=== PATIENT | male | born 1940 | race Caucasian/White ===

== ENCOUNTER → 2019-02-03 | Outpatient (CLI) | payer OTHER, MEDICARE ==
[~2019-02-03] VITALS: Ht 172.7 cm; Wt 69.3 kg
[~2019-02-03] MED LIST: ASPIRIN325 PO; COUMADIN 4 MG TA4 M1 PO; DIGOXIN125 MCG PO; FOLIC ACID1 MG PO; LASIX 20 MG TAB20 MG PO; METHOCARBAMOL500 M2 PO; METOPROLOL SUCC50 MG PO; MIRALAX17 GM PO; NEURONTIN 300300 M1 PO; NORCO 5-325 TA1 EACH PO; POTASSIUM20 PO; PRADAXA150 MG PO; PROTONIX40 M1 PO; VITAMIN D2000 UNIT PO
[2019-02-03 13:45] VITALS: BP 104/70
--- NOTE | 2019-02-03 14:28 | NUR ---
Pain Clinic Assessment: 1. History of Osteoarthritis: right hip right shoulder History of Rheumatoid Arthritis: Not Applicable 2. Height: 5 ft. 8 in. 172.7 cm. Weight: 152.8 lb. oz. 69.310 kg. Patient's BMI: 23.2 3. Vital Signs: BP: 104/70 Pulse: 85 Resp: 14 Temp: 02 Sat: 98 ECG Mon: 4. Pain Intensity: 6 5. Fall Risk: Dizziness: N Needs help standing or walking: Y Fallen in the last 3 months: Y Fall risk comments: 6. Patient on Blood Thinner: Dabigatran Etex (Pradaxa) 7. History of Hypertension: Y 8. Opioid Therapy greater than 6 weeks: N Opiate Contract Signed: 9. Risk Assessment Tool Provided: low-1 10. Functional Assessment Tool: 11. Recreational Drug Use: Never Drug Type: Tobacco Use: Former Smoker Tobacco Type: Amount or Packs/day: How Many Years: Alcohol Use: No Frequency: Quant:
--- NOTE | 2019-02-07 18:13 | HPC ---
[facility] [place] [address] PAIN MANAGEMENT CONSULTATION Name: ANNA JONES Room #: REG DEANNE Karin.#: [id number] Admission: 02/03/19 ������������������ Attend Phys: Eliel Browne MD Discharge: ������������������ Date of : 38 Report #: [id number] THIS REPORT FOR: //name// CC: [facility] Eliel Browne DATE OF SERVICE: 02/03/2019 CHIEF COMPLAINT: Severe pain and swelling, right lower extremity following severe compression fracture of T12. I am seeing the patient today at the request of Dr. Brandee Carrillo. He and I discussed his case over the phone. He has ongoing pain that is mostly in his foot, but also involves the calf. There is swelling in the foot as well and some increase in blood flow. He does not have allodynia at this time, but there do appear to be sympathetic changes throughout the foot. There was no injury noted to the foot. His pain began after he sustained a T12 fracture on 10/27/2018. He may have had some prior foot pain related to gout. He has been extensively evaluated by his physicians, Dr. Carrillo and Dr. Selby, and an MRI was taken of his left foot. This shows soft tissue edema. There may be mild bone edema also in the fifth metatarsal, but this is not felt to be concordinate with his ongoing pain, which is mostly across the dorsum of the foot. He reports that his pain on a daily basis is 6/10, he has been taking 2 hydrocodone in the evening and an additional 2 at bedtime and then sleeping well. In addition to the hydrocodone that he takes a total of 20 mg over about 4-6 hour period, he has been using gabapentin 300 mg t.i.d. and bedtime dose of methocarbamol 500 mg. He has clearly been heavily sedated in the evening and nighttime. There has been some recommendation that he not use his opioids during the day. MEDICATIONS: Pantoprazole, Pradaxa 150 mg daily, digoxin 125 mcg daily, metoprolol 50 mg daily, Lasix 20 mg, potassium, gabapentin 600 mg t.i.d. and increase of the dose mentioned above. Aspirin 81 mg, vitamin D3, folic acid, methocarbamol 500 mg at bedtime, [place] 5/325 two tablets taken in the evening and at bedtime. ALLERGIES: None. PAST MEDICAL HISTORY: Positive for atrial fibrillation, for which he takes Pradaxa. Mitral regurgitation, hypertension. Recent compression fracture, traumatic, T12. FAMILY HISTORY: Father of coronary artery disease. [facility] [address] [place] [address] PAIN MANAGEMENT CONSULTATION Name: ANNA JONES Room #: REG [facility].#: [id number] Admission: 02/03/19 ������������������ Attend Phys: Eliel Browne MD Discharge: ������������������ Date of : 38 Report #: [id number] SOCIAL HISTORY: Denies use of alcohol. Former tobacco user, quitting in 1969. PHYSICAL EXAMINATION: GENERAL: Pleasant gentleman, wearing MUSTAFA brace. VITAL SIGNS: Blood pressure 104/70, heart rate 85, respirations 14. He is 5 feet 8 inches, 152 pounds. His BMI is 23.2. CHEST: Clear. CARDIAC: Rhythm is irregular. ABDOMEN: Soft. MUSCULOSKELETAL: Spine reveals local tenderness across the thoracolumbar region. He has limited range of motion due to the MUSTAFA brace and due to pain. Examination of the extremities reveals normal muscle mass in the thigh and calf. There is no asymmetry. There is no noted allodynia. Deep tendon reflexes are absent at knees and ankles. Examination of the affected right foot reveals mild edema, perhaps a bit more laterally than medially. There is tenderness around the dorsum of the foot. There are no open wounds. Pulses are palpable. There is no allodynia. IMPRESSION: Ongoing right foot pain and now some pain extending up into the calf by report. This occurred following a T12 compression fracture. I do believe that this is radicular but it does seem to have some sympathetically mediation and may be a variant of complex regional pain syndrome type 2. I have suggested sympathetic nerve blocks which should be performed with his anticoagulation on hold for 5 days. This would have some diagnostic and hopefully therapeutic benefits as well. I have recommended that he continue to take his hydrocodone 4 tablets a day, but rather than just taking it all in the evening and at nighttime, I think he would do better if he space it out taking one tablet 4 times daily, so that he has daytime relief. This may be of some benefit. It might benefit from some topical agents, although we did not initiate that today. We will try this sympathetic nerve block first. This will tell us to some degree with how much of his pain is sympathetically mediated. Multiple questions were asked and answered with the patient and his and daughter. Followup visit scheduled for his injection sometime in the next week once we have him off his Pradaxa for 5 days. ��������������������������������������������� <ELECTRONICALLY SIGNED> ���������������������������������������� By: Eliel Browne MD ��������������������������������������������� 02/07/19 1813 180 1347 Eliel Browne MD /nt
== END ==
LOC: PAIN 06:50
DX: S22.089D Unspecified fracture of T11-T12 vertebra, subsequent encounter for fracture with routine healing (principal); I48.91 Unspecified atrial fibrillation; I10 Essential (primary) hypertension; Z79.82 Long term (current) use of aspirin; Z79.899 Other long term (current) drug therapy; Z79.891 Long term (current) use of opiate analgesic; X58.XXXD Exposure to other specified factors, subsequent encounter

== ENCOUNTER → 2019-02-10 | Outpatient (CLI) | payer OTHER, MEDICARE ==
[~2019-02-10] VITALS: Ht 172.7 cm; Wt 78.0 kg
[~2019-02-10] MED LIST changes: +BUTRANS1 EAC1 TRANSDERM
[2019-02-10 08:32] VITALS: BP 113/70
--- NOTE | 2019-02-10 08:40 | NUR ---
Pain Clinic Assessment: 1. History of Osteoarthritis: right hip right shoulder History of Rheumatoid Arthritis: Not Applicable 2. Height: 5 ft. 8 in. 172.7 cm. Weight: 172.0 lb. oz. 78.019 kg. Patient's BMI: 26.2 3. Vital Signs: BP: 113/70 Pulse: 83 Resp: 14 Temp: 02 Sat: 97 ECG Mon: 4. Pain Intensity: 5 5. Fall Risk: Dizziness: N Needs help standing or walking: Y Fallen in the last 3 months: N Fall risk comments: 6. Patient on Blood Thinner: Dabigatran Etex (Pradaxa) 7. History of Hypertension: Y 8. Opioid Therapy greater than 6 weeks: N Opiate Contract Signed: 9. Risk Assessment Tool Provided: low-1 10. Functional Assessment Tool: 11. Recreational Drug Use: Never Drug Type: Tobacco Use: Former Smoker Tobacco Type: Amount or Packs/day: How Many Years: Alcohol Use: No Frequency: Quant:
--- NOTE | 2019-03-08 17:25 | HPC ---
[facility] [place] [address] PAIN MANAGEMENT CONSULTATION Name: ANNA JONES Room #: REG DEANNE Wade.#: [id number] Admission: 02/10/19 ������������������ Attend Phys: Eliel Browne MD Discharge: ������������������ Date of : 38 Report #: [id number] THIS REPORT FOR: //name// CC: Link Browne INCOMPLETE DICTATION Followup sympathetic nerve block. The patient returns to the pain clinic today for a lumbar epidural sympathetic nerve block. He has discontinued his Pradaxa for 5 days. He continues to complain of pain at a level of 5/10. PHYSICAL EXAMINATION: VITAL SIGNS: Five foot 8, 172 pounds. Blood pressure 113/70, heart rate 83 and respirations of 14. MUSCULOSKELETAL: Significant tenderness is located across the thoracolumbar segment. He is wearing his MUSTAFA brace. IMPRESSION: Right foot pain with sympathetic features, complex regional pain syndrome type 2. PROCEDURE: Epidural sympathetic nerve block, L2-L3, under fluoroscopic guidance. DESCRIPTION OF PROCEDURE: He was taken to the fluoroscopic suite, placed prone, skin prepped with ChloraPrep. Skin anesthetized over the L2-L3 interspace. A 20-gauge Tuohy epidural needle advanced in the epidural space with loss of resistance. There was no blood or CSF aspirated. A 1 mL of . DICTATION ENDS HERE. ��������������������������������������������� <ELECTRONICALLY SIGNED> ���������������������������������������� By: Eliel Browne MD ��������������������������������������������� 03/08/19 1725 1851 1345 Eliel Browne MD /bridger
--- NOTE | 2019-03-08 17:25 | HPC ---
[facility] [place] [address] PAIN MANAGEMENT CONSULTATION Name: ANNA JONES Room #: REG DEANNE [facility].#: [id number] Admission: 02/10/19 ������������������ Attend Phys: Eliel Browne MD Discharge: ������������������ Date of : 38 Report #: [id number] THIS REPORT FOR: //name// CC: Kelvin Browne DATE OF SERVICE: 02/10/2019 Followup visit for persistent right lower extremity pain following compression fracture of T12. The patient is here today for a lumbar epidural sympathetic nerve block. He has significant persistent pain as outlined in his consultation from 02/03/2019. There have been no significant changes over the course of the last 7 days. At that visit, multiple questions were asked and answered. The patient, his and daughter were present for that visit. We elected to proceed with a lumbar sympathetic nerve block. I considered performing simple diagnostic injection, which may have some therapeutic benefit. I have elected to proceed today with a lumbar epidural sympathetic nerve block using bupivacaine, which will also provide some somatic block as well. I believe that this will provide more significant therapeutic and lasting benefit for the patient. He has also been on a blood thinner, Pradaxa, which has been discontinued for the appropriate days. PHYSICAL EXAMINATION: Today, his blood pressure is 113/70, heart rate is 83. He is pleasant, alert and oriented. He is wearing a cast brace. He walks with a walker. He scores his pain intensity as a 6-8/10. Presentation is similar with tenderness across the dorsum of the foot without open wounds. Pulses palpable. No allodynia. IMPRESSION: Ongoing right foot pain. Some complex regional pain syndrome features, although he does not have allodynia or swelling at this time. PROCEDURE: Epidural injection lumbar sympathetic, L2-L3 under fluoroscopic guidance. He was taken to fluoroscopic suite, placed prone, skin prepped with ChloraPrep. Skin anesthetized over the L2-L3 interspace to the right of midline. A 20-gauge Tuohy epidural needle was advanced in the epidural space with loss of resistance. There was no blood nor CSF aspirated. A 1 mL of Omnipaque was injected. Good spread of dye was seen along the right lateral recess extending cephalad and caudad. It was then followed by 5 mL of 0.25% bupivacaine mixed with 40 mg of triamcinolone. He tolerated the procedure well. He was observed [address] [address] PAIN MANAGEMENT CONSULTATION Name: ANNA JONES PILARBETITO Room #: REG CLI WadeWade#: [id number] Admission: 02/10/19 ������������������ Attend Phys: Eliel Browne MD Discharge: ������������������ Date of : 38 Report #: [id number] in recovery room at the time of this dictation and was in stable condition. A followup visit is planned in 2-4 weeks. ��������������������������������������������� <ELECTRONICALLY SIGNED> ���������������������������������������� By: Eliel Browne MD ��������������������������������������������� 03/08/19 1725 0914 0326 Eliel Browne MD /bridger
== END | disposition home or self-care (01) ==
LOC: PAIN 06:45
DX: G57.71 Causalgia of right lower limb (principal); Z87.891 Personal history of nicotine dependence; Z79.82 Long term (current) use of aspirin; Z88.8 Allergy status to other drugs, medicaments and biological substances; Z79.899 Other long term (current) drug therapy

== ENCOUNTER → 2019-04-04 | Outpatient (CLI) | payer OTHER, MEDICARE ==
[~2019-04-04] VITALS: Ht 167.6 cm; Wt 69.5 kg
[~2019-04-04] MED LIST changes: +BUTRANS1 EAC3 TRANSDERM
--- NOTE | ~2019-04-04 | HPC ---
[facility] [address] [address] PAIN MANAGEMENT CONSULTATION Name: ANNA JONES Room #: REG DEANNE Hylton.#: [id number] Admission: 04/04/19 ������������������ Attend Phys: Eliel Browne MD Discharge: ������������������ Date of : 38 Report #: [id number] THIS REPORT FOR: //name// CC: ALEXANDER Browne DATE OF SERVICE: 04/04/2019 Followup visit for intractable low back pain and left lower extremity pain following compression fracture. The patient returns to pain clinic today and I am pleased to report that he is doing extremely well. We transitioned him at last visit to Butrans patch. Buprenorphine has agreed with him. He has been substantially lower in pain [id number] and has discontinued his use of hydrocodone completely. The most notable benefit, however, has been the ability to sleep through the night. Since he has been sleeping through the night, he is feeling better during the day and his mobility has improved as well. He is grateful for the relief. He denies side effects. He understands that this is an opioid medication, albeit an unusual one with an unusual delivery system. He will safeguard his medications. PQRS REVIEW: 1. Positive for osteoarthritis, right hip and shoulder. 2. BMI is 24. 3. Vital signs: Blood pressure 131/83, heart rate 98, respirations 16, O2 sat 97%. 4. Pain intensity 10/17. 5. He has not fallen in the last 3 months. 6. He remains on Pradaxa. 7. He is treated by Dr. Selby for hypertension. All medications were reviewed and reconciled. We are currently only providing his buprenorphine. 8. He is on a verbal opioid agreement. He did not sign a written agreement. If we continue this chronically after 3 months, we will ask him to do so. 9. He has completed an opioid risk tool and is considered at low risk. 10. Functional assessment score is low suggesting this gentleman is active and does not allow the pain to slow him. 11. He denies use of tobacco and alcohol. PHYSICAL EXAMINATION: GENERAL: He is pleasant, alert and oriented. VITAL SIGNS: As noted above. MUSCULOSKELETAL: He moves independently from sitting to standing position. He has a MUSTAFA brace on. He has mild pain with back extension and some improvement with forward flexion. Tenderness across the mid back. [facility] [address] [place] [address] PAIN MANAGEMENT CONSULTATION Name: ANNA JONES Room #: REG DEANNE Vinny#: [id number] Admission: 04/04/19 ������������������ Attend Phys: Eliel Browne MD Discharge: ������������������ Date of : 38 Report #: [id number] EXTREMITIES: Foot is improved with some continued swelling. This may be unrelated to his fracture at this point. IMPRESSION: Compression fracture. Pain well controlled currently with buprenorphine patch q. 7 days. PLAN: We have discussed increasing the patch slightly to 15 mcg. He has tolerated the first patch very effectively. We will increase the patch today, and I provided him with medication refills for the next 3 months. At the end of that period, I will continue the medication, but may consider tapering if he is doing well. I would like to keep his pain under control during this period of healing. ��������������������������������������������� ���������������������������������������� By: ��������������������������������������������� 0921 0229 Eliel Browne MD /nt
[2019-04-04 08:55] VITALS: BP 131/83
--- NOTE | 2019-04-04 08:59 | NUR ---
Pain Clinic Assessment: 1. History of Osteoarthritis: right hip right shoulder History of Rheumatoid Arthritis: Not Applicable 2. Height: 5 ft. 6 in. 167.6 cm. Weight: 153.2 lb. oz. 69.491 kg. Patient's BMI: 24.7 3. Vital Signs: BP: 131/83 Pulse: 98 Resp: 16 Temp: 02 Sat: 97 ECG Mon: 4. Pain Intensity: 2 5. Fall Risk: Dizziness: N Needs help standing or walking: N Fallen in the last 3 months: N Fall risk comments: 6. Patient on Blood Thinner: Dabigatran Etex (Pradaxa) 7. History of Hypertension: Y 8. Opioid Therapy greater than 6 weeks: N Opiate Contract Signed: 9. Risk Assessment Tool Provided: low-1 10. Functional Assessment Tool: 11. Recreational Drug Use: Never Drug Type: Tobacco Use: Former Smoker Tobacco Type: Amount or Packs/day: How Many Years: Alcohol Use: No Frequency: Quant:
== END ==
LOC: PAIN 06:49
DX: M48.56XA Collapsed vertebra, not elsewhere classified, lumbar region, initial encounter for fracture (principal); M79.605 Pain in left leg

== ENCOUNTER → 2019-07-04 | Outpatient (CLI) | payer OTHER, MEDICARE ==
[~2019-07-04] VITALS: Ht 175.3 cm; Wt 71.8 kg
[~2019-07-04] MED LIST changes: +MELOXICAM15 MG PO; +VOLTAREN GEL 1100 G1 TOP
[2019-07-04 09:01] VITALS: BP 119/68
--- NOTE | 2019-07-04 09:05 | NUR ---
Pain Clinic Assessment: 1. History of Osteoarthritis: right hip right shoulder History of Rheumatoid Arthritis: Not Applicable 2. Height: 5 ft. 9 in. 175.3 cm. Weight: 158.4 lb. oz. 71.850 kg. Patient's BMI: 23.4 3. Vital Signs: BP: 119/68 Pulse: 95 Resp: 16 Temp: 02 Sat: 98 ECG Mon: 4. Pain Intensity: 0 5. Fall Risk: Dizziness: Y Needs help standing or walking: N Fallen in the last 3 months: N Fall risk comments: 6. Patient on Blood Thinner: Dabigatran Etex (Pradaxa) 7. History of Hypertension: Y 8. Opioid Therapy greater than 6 weeks: N Opiate Contract Signed: 9. Risk Assessment Tool Provided: low-1 10. Functional Assessment Tool: 11. Recreational Drug Use: Never Drug Type: Tobacco Use: Former Smoker Tobacco Type: Amount or Packs/day: How Many Years: Alcohol Use: No Frequency: Quant:
--- NOTE | 2019-07-05 15:15 | HPC ---
[facility] [address] [place] [address] PAIN MANAGEMENT CONSULTATION Name: ANNA JONES Room #: REG ELIGIO Concetta.#: [id number] Admission: 07/04/19 Attend Phys: Roz Barakat Discharge: Date of : 38 Report #: [id number] THIS REPORT FOR: //name// CC: Roz Barakat Anoop Selby DATE OF SERVICE: 07/04/2019 CHIEF COMPLAINT: Chronic intractable low back pain and left lower extremity pain. HISTORY OF PRESENT ILLNESS: This is a very pleasant 79-year-old gentleman who returns to the pain clinic today reporting that he has been out of his Butrans patch since last , but currently today he is having no pain. He tells me that his bilateral foot pain, which was the worst pain that he was experiencing has gone. He is unsure if he is still needing his Butrans patches and he denies any pain for several days. He reports that he has not experienced any withdrawal symptoms since his patch wore off on . He had this appointment scheduled, but somehow was off on the timing of that appointment. He does report that he had started meloxicam from Dr. Carrillo and has found that medication very beneficial in helping his arthritis pain in his knees and elbows and wrists. The patient is here today, unsure if he should restart his medications. ALLERGIES: MORPHINE. CURRENT LIST OF MEDICATIONS: Meloxicam 15 mg daily, Butrans patch 15 mcg every 7 days, Pradaxa 150 mg b.i.d., folic acid, vitamin D3, aspirin, gabapentin 600 mg t.i.d., potassium, Lasix, metoprolol, Lanoxin and Protonix. PQRS: 1. He has osteoarthritis in his right hip, right shoulder, bilateral knees and bilateral elbows and wrists. Denies any rheumatoid arthritis. 2. Height is 5 feet 9 inches, weight is 158, BMI is 23. 3. Vital signs 119/68, pulse is 95, respirations 16, oxygen sat is 98, pain score is 0. Fall risk, complains of slight dizziness. He does not need help walking or standing, has not fallen in the last 3 months. 4. The patient is on Pradaxa. He also has a history of hypertension. 5. Opiate therapy is greater than 6 weeks. Risk assessment tool is low. Functional assessment is . 6. Recreational drug use, he denies. He is a former smoker and does not drink alcohol. According to the prescription monitoring system, the patient is due to [place] [address] PAIN MANAGEMENT CONSULTATION Name: ANNA JONES Room #: REG DEANNE Casillas#: [id number] Admission: 07/04/19 Attend Phys: Roz Barakat Discharge: Date of : 38 Report #: [id number] PHYSICAL EXAMINATION: GENERAL: This is a very pleasant and alert 79-year-old gentleman who appears his stated age, placing his current pain score at 0. HEENT: Normocephalic, atraumatic. Extraocular eye muscles are intact. MUSCULOSKELETAL: The patient moves independently from the sitting to standing position. He has tenderness in his lower back, pain in his bilateral feet today, left greater than right. Pain is located in his greater toe on his right foot. Lower extremity strength judged to be 5/5 in all major muscle groups. 1+ edema in his lower extremity. IMPRESSION: 1. Right foot pain with symptomatic features. 2. Complex regional pain syndrome type 2. 3. Osteoarthritis in multiple joints of hips, shoulders, knees, elbows. We reviewed the fact that opiate medications are being used to provide analgesia adequate to support activities of daily living, not attempting to achieve a specific pain score on the 0-10 Visual Analog Scale. The current opiate medications are providing sufficient analgesia to allow the patient to participate in activities of daily living. The patient is not exhibiting any aberrant behavior suggestive of drug diversion. The patient is not having any adverse reactions to medications. The patient is not suffering from daytime somnolence or mental acuity changes. The patient is managing opiate-induced constipation with appropriate [id number] agents and dietary considerations. The patient was counseled on concern for caution with operating a motor vehicle while using opiate medications. A physical exam was performed and the patient's functional status was evaluated. All patients with back pain were advised against the bed rest greater than 4 days and were advised to return to normal activities. Pain score assessment was noted and the treatment plan was reviewed with the patient. All current medications, both prescribed and OTC were reviewed and reconciled on the electronic medical record. Tobacco screening was accomplished and smoking cessation was advised when indicated. BMI was noted and diet/exercise modification was recommended for all patients following outside normal parameters. I reviewed with the patient today their responsibilities to safeguard prescription medications, reviewed their responsibility to utilize medications only as prescribed by the physician. They are to seek and receive pain medications only from 1 physician group ([facility]). They are to use 1 pharmacy and keep the clinic informed if they change pharmacies. Their responsibilities include making followup visits in a timely fashion and to avoid abrupt discontinuation of medication usage. Their responsibilities further include bringing their medications (bottles from the pharmacy with residual pills) to the visit for possible confirmation of pill counts and the patient [address] [address] PAIN MANAGEMENT CONSULTATION Name: ANNA JONES Room #: REG [facility].#: [id number] Admission: 07/04/19 Attend Phys: Roz Barakat Discharge: Date of : 38 Report #: [id number] understands it is their responsibility to submit to random drug screens to ensure both that the medications prescribed are present, and that no other controlled substances are present. All prescriptions provided today were generated electronically. PLAN: 1. We discussed treatment options with the patient today. The patient has been without his Butrans patch since when it was due to be changed. He is rating as 0 pain score today at this visit. He reports only pain in the big toe and feels that the past bilateral foot pain has resolved, unsure if he needs to continue his Butrans. I did discuss with Dr. Eliel Browne at this present, we have determined that we will keep him off his Butrans patches. If it does return, he can call in and we will restart those at a lower dose. He was currently on 15. I think we would restart at 5 mcg or possibly 10 depending on what the patient reports. 2. The patient has recently started meloxicam from Dr. Kelvin Carrillo. I did caution him on this medication. Since he takes Pradaxa, I worry about GI symptoms or bleeding. The patient told about signs and symptoms of rectal bleeding or stomach pain, signs to look for. He has also been instructed to contact Dr. De La Rosa, his single resource boss, to see if he would want him to continue meloxicam. 3. I did offer the patient a prescription for Voltaren gel that he did take with him today. If the single resource boss wants him to stop his meloxicam, he may use these on his knees and elbows, wrist for his ongoing arthritic pain that he is experiencing most at bedtime. 4. The patient dismissed to home. He was seen by Dr. Browne today who helped collaborate care. <ELECTRONICALLY SIGNED> By: Roz Barakat 07/05/19 1515 1029 1304 Roz Barakat /nt
== END ==
LOC: PAIN 06:49
DX: G57.72 Causalgia of left lower limb (principal); M54.5 Low back pain; M79.662 Pain in left lower leg; G89.4 Chronic pain syndrome; M17.0 Bilateral primary osteoarthritis of knee; M19.011 Primary osteoarthritis, right shoulder; M19.012 Primary osteoarthritis, left shoulder; M16.0 Bilateral primary osteoarthritis of hip; M19.022 Primary osteoarthritis, left elbow; M19.021 Primary osteoarthritis, right elbow; Z79.899 Other long term (current) drug therapy; Z79.891 Long term (current) use of opiate analgesic; Z88.5 Allergy status to narcotic agent

== ENCOUNTER → 2019-09-26 | Outpatient (CLI) | payer OTHER, MEDICARE ==
[~2019-09-26] VITALS: Ht 172.7 cm; Wt 73.4 kg
[~2019-09-26] MED LIST changes: +ARANESP25 MCG/1 M IV; +CELEBREX100 MG/1 C PO; +CURCUMIN1 GM PO
[2019-09-26 09:41] VITALS: BP 115/64
--- NOTE | 2019-09-26 10:05 | NUR ---
Pain Clinic Assessment: 1. History of Osteoarthritis: right hip right shoulder History of Rheumatoid Arthritis: Not Applicable 2. Height: 5 ft. 8 in. 172.7 cm. Weight: 161.8 lb. oz. 73.392 kg. Patient's BMI: 24.6 3. Vital Signs: BP: 115/64 Pulse: 83 Resp: 14 Temp: 02 Sat: 100 ECG Mon: 4. Pain Intensity: 6 5. Fall Risk: Dizziness: Y Needs help standing or walking: N Fallen in the last 3 months: N Fall risk comments: 6. Patient on Blood Thinner: Dabigatran Etex (Pradaxa) 7. History of Hypertension: Y 8. Opioid Therapy greater than 6 weeks: N Opiate Contract Signed: 9. Risk Assessment Tool Provided: low-1 10. Functional Assessment Tool: 11. Recreational Drug Use: Never Drug Type: Tobacco Use: Former Smoker Tobacco Type: Amount or Packs/day: How Many Years: Alcohol Use: Yes Frequency: Monthly Quant: 1 DRINK
--- NOTE | 2019-09-27 08:08 | HPC ---
[facility] [address] [place] [address] PAIN MANAGEMENT CONSULTATION Name: ANNA JONES Room #: REG DEANNE Vinny#: [id number] Admission: 09/26/19 Attend Phys: Roz Barakat Discharge: Date of : 38 Report #: [id number] THIS REPORT FOR: //name// CC: Roz Browne MD DATE OF SERVICE: 09/26/2019 CHIEF COMPLAINT: Chronic intractable low back pain and left lower extremity pain. HISTORY OF PRESENT ILLNESS: This is a very pleasant 79-year-old gentleman who is here with his today for refill of his Butrans patch. He does report he is having ongoing low back pain, but is having more significant bilateral foot pain. He reports that he was told by the sagger preparer that he is suffering from plantar fasciitis and is about to start physical therapy to see if that is beneficial in helping with his foot pain. Today, he is reporting his pain score as 6/10. It is a burning, throbbing pain, mostly in his feet, worse with any standing or walking. He feels that his Butrans patch is very beneficial in helping with his low back pain. The patient also reports he has stopped his blood thinner due to a significant nosebleed that he had suffered, did require him to go to the Emergency Room and have it cauterized as well as packing. He continues to have ongoing issues with that presently as well. ALLERGIES: MORPHINE. CURRENT LIST OF MEDICATIONS: Aranesp every 3 weeks, turmeric, Celebrex, Butrans 15 mcg patch, Pradaxa holding, folic acid, vitamin D, aspirin, gabapentin, potassium, Lasix, metoprolol, Protonix and Lanoxin. PQRS: 1. He has osteoarthritis in his hips, shoulders, knees and wrists. He denies any rheumatoid arthritis. 2. Height is 5 feet 8 inches, weight is 161, BMI is 24. 3. Vital signs, blood pressure 115/64, pulse is 83, respirations 14, oxygen sat is 100. 4. Pain score 6/10. 5. Complains of dizziness, does not need help walking or standing, has not fallen in the last 3 months. The patient is on blood thinner, Pradaxa, but is being held currently. He also has medicines for hypertension. 6. Opiate therapy is greater than 6 weeks; therefore, an opioid signed contract is on our chart. We will place an opioid therapy on the chart. [address] [address] PAIN MANAGEMENT CONSULTATION Name: ANNA JONES Room #: REG [facility].#: [id number] Admission: 09/26/19 Attend Phys: Roz Barakat Discharge: Date of : 38 Report #: [id number] 7. Risk assessment tool is low. Functional assessment is . 8. Recreational drug use, he denies. He is a former smoker and occasionally drinks alcohol. According to the prescription monitoring system, the patient is due to fill his Butrans patch. He does have 1 week left before he is needing to refill this medication. PHYSICAL EXAMINATION: GENERAL: This is alert and orientated 79-year-old gentleman, who appears his stated age, placing his current pain score at 6/10. HEENT: Normocephalic, atraumatic. Extraocular eye muscles are intact. The patient reports packing in his right nasal cavity due to recent nasal bleeding. MUSCULOSKELETAL: The patient moves independently from the sitting to standing position. He has pain across his lumbar spine that radiates down his legs to his feet. Complains of intense burning in his bilateral feet, walking with antalgic gait. Lower extremity strength judged to be 5/5 in all major muscle groups. IMPRESSION: 1. Complex regional pain syndrome type 2. 2. Bilateral foot pain. 3. Low back pain. 4. Osteoarthritis of multiple joints. We reviewed the fact that opiate medications are being used to provide analgesia adequate to support activities of daily living, not attempting to achieve a specific pain score on the 0-10 Visual Analog Scale. The current opiate medications are providing sufficient analgesia to allow the patient to participate in activities of daily living. The patient is not exhibiting any aberrant behavior suggestive of drug diversion. The patient is not having any adverse reactions to medications. The patient is not suffering from daytime somnolence or mental acuity changes. The patient is managing opiate-induced constipation with appropriate rhiv-zzb-rooskpl agents and dietary considerations. The patient was counseled on concern for caution with operating a motor vehicle while using opiate medications. PLAN: 1. We discussed treatment options with the patient today. The patient had restarted his Butrans patch in July when his pain did increase. He is currently taking 15 mcg every day per the patch and changing it every week. He is needing refills of this medication today. Dr. Eliel Browne will e-scribe this prescription for him for 3 months. 2. I encouraged the patient to use his Voltaren Gel on his bilateral feet and see if this is helpful with some of his pain. I also encouraged him to start the physical therapy that his sagger preparer has ordered and be sure to do the [address] [address] PAIN MANAGEMENT CONSULTATION Name: ANNA JONES Room #: REG DEANNE Casillas#: [id number] Admission: 09/26/19 Attend Phys: Roz Barakat Discharge: Date of : 38 Report #: [id number] exercises at home. I believe this will be beneficial in helping some of his foot pain. The patient verbalizes understanding. 3. The patient is seen in collaboration with Dr. Eliel Browne. The patient will return to our clinic in 3 months for refills of his medications. <ELECTRONICALLY SIGNED> By: Roz Barakat 09/27/19 0808 [id number] Roz Barakat /nt
== END ==
LOC: PAIN 06:57
DX: G89.4 Chronic pain syndrome (principal); M54.5 Low back pain; M79.671 Pain in right foot; M79.672 Pain in left foot; Z79.899 Other long term (current) drug therapy; Z79.891 Long term (current) use of opiate analgesic

== ENCOUNTER → 2019-12-29 | Outpatient (CLI) | payer OTHER, MEDICARE ==
[~2019-12-29] VITALS: Ht 172.7 cm; Wt 77.7 kg
[2019-12-29 09:44] VITALS: BP 121/71
--- NOTE | 2019-12-29 09:53 | NUR ---
Pain Clinic Assessment: 1. History of Osteoarthritis: right hip right shoulder History of Rheumatoid Arthritis: Not Applicable 2. Height: 5 ft. 8 in. 172.7 cm. Weight: 171.4 lb. oz. 77.747 kg. Patient's BMI: 26.1 3. Vital Signs: BP: 121/71 Pulse: 112 Resp: 22 Temp: 02 Sat: 98 ECG Mon: 4. Pain Intensity: 2 5. Fall Risk: Dizziness: N Needs help standing or walking: N Fallen in the last 3 months: N Fall risk comments: 6. Patient on Blood Thinner: Dabigatran Etex (Pradaxa) 7. History of Hypertension: Y 8. Opioid Therapy greater than 6 weeks: N Opiate Contract Signed: 9. Risk Assessment Tool Provided: low-1 10. Functional Assessment Tool: 11. Recreational Drug Use: Never Drug Type: Tobacco Use: Former Smoker Tobacco Type: Amount or Packs/day: How Many Years: Alcohol Use: No Frequency: Quant:
--- NOTE | 2020-01-02 08:49 | HPC ---
[facility] [address] [place] [address] PAIN MANAGEMENT CONSULTATION Name: ANNA JONES Room #: REG DEANNE Wade.#: [id number] Admission: 12/29/19 Attend Phys: Roz Barakat Discharge: Date of : 38 Report #: [id number] THIS REPORT FOR: cc: Anoop Selby MD,Anoop Barakat,Roz FUENTES ~ CC: Eliel Browne MD DATE OF SERVICE: 12/29/2019 CHIEF COMPLAINT: Chronic intractable low back pain and left lower extremity pain. HISTORY OF PRESENT ILLNESS: This is a very pleasant 79-year-old gentleman who returns to the pain clinic today for refill of his Butrans patch that he uses to help treat his ongoing low back pain. He also has significant bilateral foot neuropathy that he feels is beneficial as well as taking gabapentin. Today, he is reporting a pain score of 2/10. He recently increased his gabapentin and he has found this beneficial in reducing some of his pain. Today, he reports the pain in his lower back. He did have a T12 fracture on October 27 and started rehab after an inpatient visit. He had to stop rehab for a while and his foot pain increased significantly, but has recently restarted this therapy. He reports activity as well as sleeping does sometimes increase his pain, that also at times exercises beneficial as well as his medication for helping treating his burning, aching, sharp pain that he experiences. The patient reports today he received 2 units of packed red blood cells on Thursday due to a hemoglobin of 5 related to his cancer of myelodysplastic syndrome. He reports that he has been having some bloody stools and has recently stopped his Pradaxa as a result of his low hemoglobin. He reports he had a recheck this morning and is hopeful that it is increased, though he still reports being very tired, but does not complain of dizziness with his low hemoglobin. ALLERGIES: MORPHINE. CURRENT LIST OF MEDICATIONS: Butrans 15 mcg patch, Aranesp every 3 weeks, turmeric, Celebrex, folic acid, vitamin D, aspirin, gabapentin 300 mg 5 tablets a day, potassium, Lasix, metoprolol, digoxin, Protonix. PQRS: 1. He has osteoarthritis in his right hip and right shoulder. He denies any rheumatoid arthritis. 2. Height is 5 feet 8 inches, weight is 171, BMI is 26. 3. Vital signs 121/71, pulse is 112, respirations 22, oxygen sat is 98. 4. Pain score is 2/10. [address] [address] PAIN MANAGEMENT CONSULTATION Name: ANNA JONES Room #: REG [facility].#: [id number] Admission: 12/29/19 Attend Phys: Roz Barakat Discharge: Date of : 38 Report #: [id number] 5. Denies dizziness, does not need help walking or standing, has not fallen in the last 3 months. 6. The patient's Pradaxa is on hold currently this week. He does take medicine for hypertension. His opioid therapy is greater than 6 weeks. His risk assessment tool is low. Functional assessment is . 7. Recreational drug use, he denies. He is a former smoker and does not drink alcohol. According to the prescription monitoring system, the patient is filling appropriately for his medications in a timely fashion. He is due to fill these medications today. PHYSICAL EXAMINATION: GENERAL: This is alert and orientated, very pleasant 79-year-old gentleman who appears his stated age, placing his current pain score at 2/10 today. HEENT: Normocephalic, atraumatic. Extraocular eye muscles are intact. MUSCULOSKELETAL: He moves independently from the sitting to standing position. He has pain in his lumbar spine that radiates down into his bilateral feet with burning. He has an antalgic gait. He has several ecchymoses areas on his forearms from recent IV start and blood draws. Lower extremity strength judged to be 5/5 in all major muscle groups and he has 2+ edema present in his lower extremities. IMPRESSION: 1. Complex regional pain, type 2. 2. Recent T12 thoracic compression fracture. 3. Osteoarthritis of multiple joints, hips and shoulders. 4. Myelodysplastic syndrome, requiring ongoing therapy. 5. Anemia. Hemoglobin of 5, requiring 2 units of packed blood cells this week. 6. Atrial fibrillation, on Pradaxa, currently on hold due to anemia. 7. Complex medical management under terms of written opioid agreement. 8. Low back pain. 9. Bilateral foot pain. We reviewed the fact that opiate medications are being used to provide analgesia adequate to support activities of daily living, not attempting to achieve a specific pain score on the 0-10 Visual Analog Scale. The current opiate medications are providing sufficient analgesia to allow the patient to participate in activities of daily living. The patient is not exhibiting any aberrant behavior suggestive of drug diversion. The patient is not having any adverse reactions to medications. The patient is not suffering from daytime somnolence or mental acuity changes. The patient is managing opiate-induced constipation with appropriate llhu-juc-tlhxjsd agents and dietary considerations. The patient was counseled on concern for caution with operating a motor vehicle while using opiate medications. [address] [address] PAIN MANAGEMENT CONSULTATION Name: ANNA JONES Room #: REG [facility]#: [id number] Admission: 12/29/19 Attend Phys: Roz FUENTES uYval Discharge: Date of : 38 Report #: [id number] PLAN: 1. We discussed treatment options with the patient today. The patient finds his Butrans very beneficial in controlling his pain, currently using a 15 mcg patch once a week. We will send this electronically for refills of quantity #4 with 2 additional refills, lasting him 3 months. 2. The patient reports that he recently had bloody stools and was feeling very tired. He did receive 2 units of packed red blood cells due to hemoglobin of 5. He recently had his blood drawn again today. The patient continues to have to experience being extremely tired, but denies dizziness or short of breath and the patient reported he did not drive himself today, which I reported I was happy to hear since he is feeling weak. 3. We discussed his lower extremity edema and his ongoing gabapentin treatment for his neuropathy. He feels the gabapentin has been beneficial. He recently increased to 300 mg 5 tablets a day. When I questioned him regarding his lower extremity edema, he reports that has not increased since he has increased the gabapentin. He is on Lasix as well as potassium for his ongoing edema issues, currently they are 2+. I encouraged him to keep an eye on that. If it does increase, to notify Dr. Selby as a side effect of gabapentin is edema. The patient verbalizes understanding. 4. The patient will return in 3 months as needed for medication refills. Today's visit was collaborated with Dr. Eliel Browne who did see the patient as well. <ELECTRONICALLY SIGNED> By: Roz Barakat 01/02/20 0849 [id number] Roz Barakat /nt
== END ==
LOC: PAIN 09:31
DX: M54.5 Low back pain (principal); M79.605 Pain in left leg; M48.54XD Collapsed vertebra, not elsewhere classified, thoracic region, subsequent encounter for fracture with routine healing; M16.0 Bilateral primary osteoarthritis of hip; M19.011 Primary osteoarthritis, right shoulder; M19.012 Primary osteoarthritis, left shoulder; D64.9 Anemia, unspecified; I48.91 Unspecified atrial fibrillation; M79.672 Pain in left foot; M79.671 Pain in right foot; F11.20 Opioid dependence, uncomplicated; Z88.8 Allergy status to other drugs, medicaments and biological substances; Z79.899 Other long term (current) drug therapy

== ENCOUNTER → 2020-03-15 | Outpatient (CLI) | payer OTHER, MEDICARE ==
[~2020-03-15] VITALS: Ht 170.2 cm; Wt 72.3 kg
[~2020-03-15] MED LIST changes: +ASPIR 8181 M1 PO
[2020-03-15 13:46] VITALS: BP 140/83
--- NOTE | 2020-03-15 14:06 | NUR ---
Pain Clinic Assessment: 1. History of Osteoarthritis: right hip right shoulder BACK History of Rheumatoid Arthritis: Not Applicable 2. Height: 5 ft. 7 in. 170.2 cm. Weight: 159.4 lb. oz. 72.303 kg. Patient's BMI: 25.0 3. Vital Signs: BP: 140/83 Pulse: 85 Resp: 14 Temp: 02 Sat: 99 ECG Mon: 4. Pain Intensity: 3 5. Fall Risk: Dizziness: N Needs help standing or walking: N Fallen in the last 3 months: N Fall risk comments: 6. Patient on Blood Thinner: Dabigatran Etex (Pradaxa) 7. History of Hypertension: Y 8. Opioid Therapy greater than 6 weeks: N Opiate Contract Signed: 9. Risk Assessment Tool Provided: low-1 10. Functional Assessment Tool: 11. Recreational Drug Use: Never Drug Type: Tobacco Use: Former Smoker Tobacco Type: Amount or Packs/day: How Many Years: Alcohol Use: No Frequency: Quant:
--- NOTE | 2020-03-16 08:45 | HPC ---
[facility] [address] [address] PAIN MANAGEMENT CONSULTATION Name: ANNA JONES Room #: REG DEANNE Concetta.#: [id number] Admission: 03/15/20 Attend Phys: Roz Barakat Discharge: Date of : 38 Report #: [id number] THIS REPORT FOR: cc: Anoop Selby MD,Anoop Barakat,Roz FUENTES ~ CC: Roz Browne MD DATE OF SERVICE: 03/15/2020 CHIEF COMPLAINT: Chronic intractable low back pain, left lower extremity pain. HISTORY OF PRESENT ILLNESS: This is a very pleasant 79-year-old gentleman who returns to the pain clinic today for refill of his Butrans patch. He is rating the pain score today at 3/10. He finds the patch very beneficial in controlling his pain. He reports that his pain is located in his bilateral feet as well as his low back. His thoracic area is finally starting to feel better. He has had physical therapy and rehabilitation in regards to that. He states that he has a tender soreness and occasional sharp pain that is worse with activity or sleeping. He feels as long as he is active and on medication he is doing quite well. He would like a refill of these current medications. The patient reports he is currently not on his Pradaxa due to having issues with his cancer treatments and his blood thinner. He is going to have a cardiac procedure in the near future at . They are trying to prevent him from having ongoing blood transfusions or having a medication that is very expensive that he takes for his myelodysplastic syndrome that decreases and attacks his red blood cells. ALLERGIES: MORPHINE. CURRENT LIST OF MEDICATIONS: Butrans 15 mcg patch, Aranesp every 3 weeks, turmeric, Celebrex, folic acid, vitamin D, aspirin, gabapentin, potassium, Lasix, metoprolol, digoxin, Protonix and Pradaxa. PQRS: 1. He has osteoarthritic changes in his hips, shoulders and back. Denies rheumatoid arthritis. 2. Height is 5 feet 7 inches, weight is 159, BMI is 25. 3. Vital signs 140/83, pulse is 85, respirations 14, oxygen sat is 99. 4. Pain score is 3/10. 5. Denies dizziness, does not need help walking or standing, has not fallen in the last 3 months. 6. The patient is on Pradaxa, though on hold currently. He does take medicines [address] [address] PAIN MANAGEMENT CONSULTATION Name: ANNA JONES RICK Room #: REG CLI Vinny#: [id number] Admission: 03/15/20 Attend Phys: Roz Barakat Discharge: Date of : 38 Report #: [id number] for hypertension. 7. Opioid therapy is greater than 6 weeks; therefore, an opioid signed contract is on the chart. Risk assessment is low. Functional assessment is . 8. Recreational drug use, he denies. He is a former smoker and does not drink alcohol. According to the prescription monitoring system, the patient is filling appropriately for his medications. He did fill one short script of hydrocodone within his recent hospitalization for his cardiac issues. Dr. Anoop Selby does prescribe his Gabapentin. PHYSICAL EXAMINATION: GENERAL: This is alert and orientated, very pleasant 79-year-old gentleman who appears his stated age, rating his pain score today at 3/10. HEENT: Normocephalic, atraumatic. Extraocular eye muscles are intact. He is wearing a mask. MUSCULOSKELETAL: He has numerous ecchymoses area on his forearms from various blood draws recently. He moves independently from the sitting to standing position. He has pain in his thoracic lumbar region. Pain radiates into his bilateral feet consistent with his neuropathy. Lower extremity strength judged to be 5/5 in all major muscle groups. He has 1+ edema in his lower extremities today. IMPRESSION: 1. Complex regional pain, type 2. 2. Previous compression fracture at the T12 level, healing. 3. Osteoarthritis of multiple joints. 4. Myelodysplastic syndrome requiring ongoing therapy. 5. Anemia. 6. Atrial fibrillation, on anticoagulation, currently on hold for procedure. 7. Low back pain. 8. Bilateral foot pain and neuropathy. 9. Complex medical management under terms of written opioid agreement. We reviewed the fact that opiate medications are being used to provide analgesia adequate to support activities of daily living, not attempting to achieve a specific pain score on the 0-10 Visual Analog Scale. The current opiate medications are providing sufficient analgesia to allow the patient to participate in activities of daily living. The patient is not exhibiting any aberrant behavior suggestive of drug diversion. The patient is not having any adverse reactions to medications. The patient is not suffering from daytime somnolence or mental acuity changes. The patient is managing opiate-induced constipation with appropriate gbdn-rnx-qluwgqx agents and dietary considerations. The patient was counseled on concern for caution with operating a motor vehicle while using opiate medications. [facility] [address] [place] [address] PAIN MANAGEMENT CONSULTATION Name: ANNA JONES Room #: REG DEANNE [place]#: [id number] Admission: 03/15/20 Attend Phys: Roz Barakat Discharge: Date of : 38 Report #: [id number] PLAN: 1. The patient is doing quite well on his current regimen of Butrans. He does rotate his patches and has no skin irritation as a result of it. He does not experience any constipation issues or daytime somnolence. We will send a script for a refill of Butrans 15 mcg with 2 additional refills quantity #4 for each month by Dr. Eliel Browne to his local pharmacy. 2. The patient will be seen again in 3 months. The patient is seen today in collaboration with Dr. Eliel Browne. <ELECTRONICALLY SIGNED> By: Roz Barakat 03/16/20 0845 [id number] Roz Barakat /nt
== END ==
LOC: PAIN 12-26 06:51
PROVIDERS: ATTEND Clinical Nurse Specialist Adult Health
DX: M16.0 Bilateral primary osteoarthritis of hip (principal); M19.012 Primary osteoarthritis, left shoulder; M19.011 Primary osteoarthritis, right shoulder; I48.91 Unspecified atrial fibrillation; D64.9 Anemia, unspecified

== ENCOUNTER → 2020-06-14 | Outpatient (CLI) | payer OTHER, MEDICARE ==
[~2020-06-14] VITALS: Ht 170.2 cm; Wt 67.6 kg
[~2020-06-14] MED LIST changes: +IRON160 M1 PO; -METOPROLOL SUCC50 MG PO; +TOPROL XL100 MG PO; +TURMERIC COMPL1 EACH PO
[2020-06-14 09:23] VITALS: BP 119/65
--- NOTE | 2020-06-14 09:39 | NUR ---
Pain Clinic Assessment: 1. History of Osteoarthritis: right hip right shoulder BACK History of Rheumatoid Arthritis: Not Applicable 2. Height: 5 ft. 7 in. 170.2 cm. Weight: 149.0 lb. oz. 67.586 kg. Patient's BMI: 23.3 3. Vital Signs: BP: 119/65 Pulse: 98 Resp: 16 Temp: 02 Sat: 96 ECG Mon: 4. Pain Intensity: 2 5. Fall Risk: Dizziness: N Needs help standing or walking: N Fallen in the last 3 months: N Fall risk comments: 6. Patient on Blood Thinner: None 7. History of Hypertension: Y 8. Opioid Therapy greater than 6 weeks: N Opiate Contract Signed: 9. Risk Assessment Tool Provided: low-1 10. Functional Assessment Tool: 11. Recreational Drug Use: Never Drug Type: Tobacco Use: Former Smoker Tobacco Type: Amount or Packs/day: How Many Years: Alcohol Use: No Frequency: Quant:
--- NOTE | 2020-06-15 07:40 | HPC ---
[facility] [address] [place] [address] PAIN MANAGEMENT CONSULTATION Name: ANNA JONES Room #: REG DEANNE Vinny#: [id number] Admission: 06/14/20 Attend Phys: Roz Barakat Discharge: Date of : 38 Report #: [id number] CC: Roz Browne MD DATE OF SERVICE: 06/14/2020 CHIEF COMPLAINT: Chronic intractable low back pain, left lower extremity pain. HISTORY OF PRESENT ILLNESS: This is a very pleasant 80-year-old gentleman who returns to the pain clinic today for medication refills. He reports he was recently hospitalized for cardiac issues. He did require a cardiac catheterization where they placed 2 clips in his right ventricle due to a leaky valve. He reports he is going to need another procedure to work on his left ventricle that has not been scheduled yet. He has seen his community center coordinator next week through his hospitalization, they have stopped his Pradaxa and he currently is taking aspirin. He reports he has been feeling fine otherwise. His pain today is a 2/10. He believes the Butrans patches very beneficial in controlling his pain and very thankful to have that medication. He denies problems with constipation. If he does have issues that arise he believes that MiraLax has been beneficial. Most of his pain is in his lower back and radiates into his legs and feet. His foot pain is relieved with his gabapentin. His pain is increased when he is active, but overall he believes that he is doing quite well from a pain standpoint with his Butrans patch. ALLERGIES: MORPHINE. CURRENT LIST OF MEDICATIONS: Iron, turmeric, Butrans 15 mcg patch weekly, aspirin, Aranesp injection, Celebrex 100 mg, vitamin D, Gabapentin 300 mg, potassium, Lasix, metoprolol, digoxin, Protonix. PQRS: 1. He has osteoarthritic changes in his hips, shoulders and back. Denies any rheumatoid arthritis. 2. Height is 5 feet 7 inches, weight is 149, BMI is 23. 3. Vital signs; blood pressure 119/65, pulse is 98, respirations 16, oxygen sat is 96. 4. Pain score is 2/10. 5. Fall risks. Denies dizziness, does not need help walking or standing, has not fallen in the last 3 months. 6. The patient is not on any blood thinners, but does take medicine for hypertension. 7. Opioid therapy is greater than [address] an opioid signed contract in his chart for him to sign. His risk assessment tool is low. Functional assessment is . 8. Recreational drug use, he denies. He is a former smoker and does not drink alcohol. According to the prescription monitoring system, he is filling appropriately for his medication. He reports he is due to change his patch today. PHYSICAL EXAMINATION: GENERAL: This is alert and orientated, very pleasant 80-year-old gentleman who appears his stated age. He is rating his pain score today at 2/10. HEENT: Normocephalic, atraumatic. Extraocular eye muscles are intact. He is wearing a mask and he is without several teeth on his top set of teeth. MUSCULOSKELETAL: He has numerous ecchymoses areas on his forearms. He moves independently from the sitting to standing position. His pain is located in his thoracic, lumbar region that radiates into his bilateral legs with neuropathic changes in his bilateral feet. Lower extremity strength judged to be 5/5 in all major muscle groups. IMPRESSION: 1. Complex regional pain, type 2. 2. Osteoarthritis of multiple joints. 3. Myelodysplastic syndrome requiring ongoing therapy. 4. Anemia. 5. Low back pain. 6. Bilateral foot pain and neuropathy. 7. Complex medical management under terms of written opioid agreement. 8. Atrial fibrillation. We reviewed the fact that opiate medications are being used to provide analgesia adequate to support activities of daily living, not attempting to achieve a specific pain score on the 0-10 Visual Analog Scale. The current opiate medications are providing sufficient analgesia to allow the patient to participate in activities of daily living. The patient is not exhibiting any aberrant behavior suggestive of drug diversion. The patient is not having any adverse reactions to medications. The patient is not suffering from daytime somnolence or mental acuity changes. The patient is managing opiate-induced constipation with appropriate luei-vye-qunyhol agents and dietary considerations. The patient was counseled on concern for caution with operating a motor vehicle while using opiate medications. PLAN: 1. We discussed treatment options with the patient today. Overall, the patient feels that his medication is very beneficial in allowing him to be as active as he would like. He would like to continue on his Butrans patch. We will have Dr. Eliel Browne send this electronically for 15 mcg, #4 with 2 additional refills sent to his pharmacy. 2. The patient does report he has had some cardiac issues, had clips installed in his right ventricle and is going to need additional clip in his left ventricle. He is currently off his anticoagulation medications. He is set to see his community center coordinator next week as well as his oncologist. They are coordinating together to find the best time for his procedure to be done. Overall, the patient feels like he is doing quite well currently. We did discuss constipation issues that do arise from time to time and encouraged him to take MiraLax as needed. 3. The patient is seen in collaboration with Dr. Eliel Browne. The patient will return in 3 months or as needed. <ELECTRONICALLY SIGNED> By: Roz Barakat 06/15/20 0740 [id number] [id number] Roz Barakat /bridger
== END ==
LOC: PAIN 06:54
PROVIDERS: ATTEND Clinical Nurse Specialist Adult Health
DX: M54.5 Low back pain (principal); G89.29 Other chronic pain; M79.605 Pain in left leg; M19.90 Unspecified osteoarthritis, unspecified site; D46.9 Myelodysplastic syndrome, unspecified; G62.9 Polyneuropathy, unspecified; F11.20 Opioid dependence, uncomplicated; I48.91 Unspecified atrial fibrillation

== ENCOUNTER → 2020-08-23 | Outpatient (CLI) | payer OTHER, MEDICARE ==
[~2020-08-23] VITALS: Ht 170.2 cm; Wt 70.9 kg
[~2020-08-23] MED LIST changes: +HYDROCODON-ACE1 EAC7 PO
[2020-08-23 10:54] VITALS: BP 107/54
--- NOTE | 2020-08-24 07:40 | HPC ---
[facility] [address] [place] [address] PAIN MANAGEMENT CONSULTATION Name: ANNA JONES Room #: REG DEANNE [facility].#: [id number] Admission: 08/23/20 Attend Phys: Roz Barakat Discharge: Date of : 38 Report #: [id number] THIS REPORT FOR: cc: Anoop Selby MD,Anoop Barakat,Roz FUENTES ~ DATE OF SERVICE: 08/23/2020 CC: Dr Eliel Browne MD CHIEF COMPLAINT: Chronic intractable low back pain, left lower extremity pain. HISTORY OF PRESENT ILLNESS: This is a very pleasant 80-year-old gentleman who returns to the pain clinic today for a discussion on his medications and a refill. Today is reporting a pain score of 5/10 in his lower back and bilateral feet. He reports that the Butrans patch does control most of his pain, though 4-5 times a month he does have increasing pain. He states his pain is a soreness that is occasional sharp and ongoing tenderness, worse with any activity. He is wondering if there are other options for these few times a 1-month that his pain is increased. He reports that Dr. Selby had previously prescribed the hydrocodone that allowed him to take on as needed basis. ALLERGIES: MORPHINE. CURRENT LIST OF MEDICATIONS: Butrans 15 mcg patch, iron, aspirin, Celebrex, gabapentin, potassium, Lasix, metoprolol, Lanoxin and Protonix. PQRS: 1. He has osteoarthritic changes in his hips, shoulders and back. Denies any rheumatoid arthritis. 2. Height is 5 feet 7 inches, weight is 156, BMI is 24. 3. Vital signs; blood pressure 107/54, pulse is 70, respirations 14, oxygen sat is 96%. 4. Pain score is 5/10. 5. Denies dizziness, does not need assistance with walking, has not fallen in the last 3 months. 6. He is on a blood thinner and does take medicines for hypertension. 7. His opioid therapy is greater than 6 weeks; therefore, an opioid signed contract is on the chart. Risk assessment is . 8. Recreational drug use, he denies. He is a former smoker and does not drink alcohol. According to the prescription monitoring system, he is filling appropriately. He is due to fill at the end of the month. He did have a prescription of hydrocodone filled in March from Dr. Selby. PHYSICAL EXAMINATION: GENERAL: This is alert and orientated, pleasant 80-year-[place] [address] PAIN MANAGEMENT CONSULTATION Name: ANNA JONES Room #: REG [facility]#: [id number] Admission: 08/23/20 Attend Phys: Roz Barakat Discharge: Date of : 38 Report #: [id number] appears his stated age, placing his current pain score at 5/10. HEENT: Normocephalic, atraumatic. Extraocular eye muscles are intact. He is wearing a mask. MUSCULOSKELETAL: He moves independently from the seated position to standing. Pain is in his thoracic, lumbar region with tenderness present and radiates into his bilateral legs into his feet consistent with his neuropathy. Lower extremity strength is judged to be 5/5. Continues to have ongoing 1+ edema in his lower extremities. IMPRESSION: 1. Complex regional pain, type 2. 2. Previous compression fracture at the T12 level. 3. Multiple joint osteoarthritis. 4. Myelodysplastic syndrome requiring ongoing treatment. 5. Atrial fibrillation, on anticoagulation. 6. Low back pain. 7. Bilateral foot pain with neuropathy. 8. Complex medical management utilizing scheduled written opioid medications. We reviewed the fact that opiate medications are being used to provide analgesia adequate to support activities of daily living, not attempting to achieve a specific pain score on the 0-10 Visual Analog Scale. The current opiate medications are providing sufficient analgesia to allow the patient to participate in activities of daily living. The patient is not exhibiting any aberrant behavior suggestive of drug diversion. The patient is not having any adverse reactions to medications. The patient is not suffering from daytime somnolence or mental acuity changes. The patient is managing opiate-induced constipation with appropriate ioxj-qho-zxwzxmh agents and dietary considerations. The patient was counseled on concern for caution with operating a motor vehicle while using opiate medications. PLAN: 1. We discussed treatment options with the patient today. The patient is stating he has increased pain 4-5 times a month that is not relieved with his Butrans patch. He is wondering about a possible increase in that medicine or options of hydrocodone. I explained to the patient that we would offer him hydrocodone 5/325, enabling him to take up to 10 total tablets a month instead of increasing his Butrans patch. That would increase his daily dose of medicine every day. I do not see that is warranted if he has pain for short periods, very rarely throughout the month. The patient is agreeable with this. I have taken the liberty of having scripts sent for hydrocodone 5/325, #30. This will last him for 3 months or possibly longer depending on his usage. 2. We will continue him on his Butrans 15 mcg patch, this will be called in [address] [address] PAIN MANAGEMENT CONSULTATION Name: ANNA JONES Room #: LAVONNE ALICEA Vinny#: [id number] Admission: 08/23/20 Attend Phys: Roz Barakat Discharge: Date of : 38 Report #: [id number] for 3 months total. 3. The patient is seen today in collaboration with Dr.Richard Browne. <ELECTRONICALLY SIGNED> By: Roz Barakat 08/24/20 0740 1315 12 Roz Barakat /bridger
== END ==
LOC: PAIN 06:51
PROVIDERS: ATTEND Clinical Nurse Specialist Adult Health
DX: M54.5 Low back pain (principal); G89.29 Other chronic pain; M79.605 Pain in left leg; M19.90 Unspecified osteoarthritis, unspecified site; I48.91 Unspecified atrial fibrillation; G62.9 Polyneuropathy, unspecified; F11.20 Opioid dependence, uncomplicated; Z88.8 Allergy status to other drugs, medicaments and biological substances; Z79.899 Other long term (current) drug therapy

== ENCOUNTER → 2020-10-11 | Outpatient (CLI) | payer OTHER, MEDICARE ==
[~2020-10-11] VITALS: Ht 170.2 cm; Wt 73.5 kg
[~2020-10-11] MED LIST changes: +FUROSEMIDE 20 M20 MG PO; +NORCO5 PO; +SPIRONOLACTONE25 M1 PO
[2020-10-11 10:57] VITALS: BP 118/91
--- NOTE | 2020-10-11 11:12 | NUR ---
Pain Clinic Assessment: 1. History of Osteoarthritis: right hip right shoulder BACK History of Rheumatoid Arthritis: Not Applicable 2. Height: 5 ft. 7 in. 170.2 cm. Weight: 162.0 lb. oz. 73.483 kg. Patient's BMI: 25.4 3. Vital Signs: BP: 118/91 Pulse: 126 Resp: 14 Temp: 02 Sat: 95 ECG Mon: 4. Pain Intensity: 2 5. Fall Risk: Dizziness: Y Needs help standing or walking: N Fallen in the last 3 months: Y Fall risk comments: 6. Patient on Blood Thinner: None 7. History of Hypertension: Y 8. Opioid Therapy greater than 6 weeks: Y Opiate Contract Signed: 9. Risk Assessment Tool Provided: low-1 10. Functional Assessment Tool: 11. Recreational Drug Use: Never Drug Type: Tobacco Use: Former Smoker Tobacco Type: Amount or Packs/day: How Many Years: Alcohol Use: No Frequency: Quant:
== END ==
LOC: PAIN 06:52
PROVIDERS: ATTEND Anesthesiology Pain Medicine
DX: G89.4 Chronic pain syndrome (principal); M19.90 Unspecified osteoarthritis, unspecified site; G62.9 Polyneuropathy, unspecified; M54.5 Low back pain; F11.20 Opioid dependence, uncomplicated; Z88.8 Allergy status to other drugs, medicaments and biological substances; Z79.899 Other long term (current) drug therapy

== ENCOUNTER → 2020-11-26 | Outpatient (CLI) | payer OTHER, MEDICARE ==
[~2020-11-26] VITALS: Ht 170.2 cm; Wt 68.9 kg
[2020-11-26 10:22] VITALS: BP 104/68
--- NOTE | 2020-11-26 10:32 | NUR ---
Pain Clinic Assessment: 1. History of Osteoarthritis: right hip right shoulder BACK History of Rheumatoid Arthritis: Not Applicable 2. Height: 5 ft. 7 in. 170.2 cm. Weight: 152.0 lb. oz. 68.947 kg. Patient's BMI: 23.8 3. Vital Signs: BP: 104/68 Pulse: 87 Resp: 16 Temp: 02 Sat: 91 ECG Mon: 4. Pain Intensity: 4 5. Fall Risk: Dizziness: N Needs help standing or walking: N Fallen in the last 3 months: Y Fall risk comments: 6. Patient on Blood Thinner: None 7. History of Hypertension: Y 8. Opioid Therapy greater than 6 weeks: Y Opiate Contract Signed: 9. Risk Assessment Tool Provided: low-0 10. Functional Assessment Tool: 11. Recreational Drug Use: Never Drug Type: Tobacco Use: Former Smoker Tobacco Type: Amount or Packs/day: How Many Years: Alcohol Use: No Frequency: Quant:
--- NOTE | 2020-11-26 14:46 | HPC ---
[facility] [address] [place] [address] PAIN MANAGEMENT CONSULTATION Name: ANNA JONES Room #: REG DEANNE Vinny#: [id number] Admission: 11/26/20 Attend Phys: Roz Barakat Discharge: Date of : 38 Report #: [id number] THIS REPORT FOR: cc: Anoop Selby MD,Anoop Barakat,Roz FUENTES ~ DATE OF SERVICE: 11/26/2020 CHIEF COMPLAINT: Chronic intractable low back pain, left lower extremity pain, complex regional pain, type 2. HISTORY OF PRESENT ILLNESS: This is a very pleasant 80-year-old who returns to the pain clinic today to discuss his hydrocodone therapy. The patient continues to use a Butrans patch on a daily basis and does find that beneficial, though he has had many interventional treatments recently. He had a pacemaker implanted. They attempted to go through his groin, which were unsuccessful. That caused significant bruising and aches and pains, then they resorted to go in through his arm and that is considerably bruised as well. His pacemaker site is clean, dry and intact. Next, he fell at home and has a significant skin tear on his left arm, which is wrapped with an Faraz bandage. All of this in addition of his normal low back pain and right shoulder pain as long as neuropathy in his feet. The patient does continue to have problems with his myelodysplastic syndrome and has recently had interventions for that as well. Today, he is requesting refills of hydrocodone since he is having to take more medications. He had discussed about. Dr. Eliel Browne had offered him additional medicine in October when he was last seen and at that time, the patient did decline the increase, but is requesting it today. He does deny any constipation. He is on lactulose daily due to other issues. He is rating his pain score at 4/10 currently with hydrocodone taken. ALLERGIES: MORPHINE. CURRENT LIST OF MEDICATIONS: [place] 5/325 p.r.n., Butrans 15 mcg patch, Lasix, Aldactone, iron, aspirin, lactulose, Aranesp injection, Celebrex, vitamin D, gabapentin, potassium, Toprol, and Protonix. PQRS: 1. He has osteoarthritic issues in his shoulders, hips and back. Denies any rheumatoid arthritis. 2. Height is 5 feet 7 inches, weight is 152, BMI is 23. 3. Vital signs 104/68, pulse is 87, respirations 16, and oxygen sat is 91%. 4. Pain score is 4/10. 5. Denies dizziness. Does need assistance with a cane for ambulation, has fallen in the last 3 months and is being treated for this. 6. The patient is not on any blood thinners, but does take medicine for hypertension. [address] [address] PAIN MANAGEMENT CONSULTATION Name: ANNA JONES Room #: REG DEANNE [facility]#: [id number] Admission: 11/26/20 Attend Phys: Roz Barakat Discharge: Date of : 38 Report #: [id number] 7. Opioid therapy is greater than 6 weeks; therefore, an opioid signed contract is on the chart. Risk assessment is low. Functional assessment is 38/70. 8. Recreational drug use, he denies. He is a former smoker and does not drink alcohol. According to the prescription monitoring system, he is due to fill hydrocodone. He has not filled our most recent prescriptions of Butrans and is not in need of that medication today. His morphine mEq is below 50 MME. PHYSICAL EXAMINATION: GENERAL: This is alert and orientated, slightly pale and jaundiced appearing today 80-year-old gentleman who is quite frail, rating his pain score 4/10 today. HEENT: Normocephalic, atraumatic. Extraocular eye muscles are intact. He has a mask on. HEART: Irregular rate and rhythm. LUNGS: No shortness of breath noted. MUSCULOSKELETAL: Mild back pain with tenderness in the lumbosacral region, pain in his right groin due to recent procedure with ecchymosis area. Skin tear on the left arm, covered with an Faraz bandage, but various stages of ecchymosis noted. Pacemaker on his left chest is clean, dry and intact. IMPRESSION: 1. Chronic intractable pain syndrome. 2. Complex regional pain syndrome type 2. 3. Prior compression fracture at T12. 4. Osteoarthritis. 5. Chronic low back pain. 6. Bilateral peripheral neuropathy. 7. Complicated medical management under terms of written opioid agreement. 8. Myelodysplastic syndrome, requiring ongoing treatment. We reviewed the fact that opiate medications are being used to provide analgesia adequate to support activities of daily living, not attempting to achieve a specific pain score on the 0-10 Visual Analog Scale. The current opiate medications are providing sufficient analgesia to allow the patient to participate in activities of daily living. The patient is not exhibiting any aberrant behavior suggestive of drug diversion. The patient is not having any adverse reactions to medications. The patient is not suffering from daytime somnolence or mental acuity changes. The patient is managing opiate-induced constipation with appropriate fqnc-vjq-rpunxhj agents and dietary considerations. The patient was counseled on concern for caution with operating a motor vehicle while using opiate medications. PLAN: 1. We discussed treatment options with the patient today. I think it is [address] [place] [address] PAIN MANAGEMENT CONSULTATION Name: ANNA JONES Room #: [facility] [id number] Admission: 11/26/20 Attend Phys: Roz Barakat Discharge: Date of : 38 Report #: [id number] warranted to provide him with an extra prescription of hydrocodone due to his multiple interventions he is having. He is still in need of mitral valve replacement. He has been utilizing in the past hydrocodone very sparingly, but most recently requiring up to 2 tablets a day. His does help administer his medications and I discussed this with her today that we will offer him 60 tablets of hydrocodone 5/325 to be sent today and then another prescription that may be picked up in a month if he is in need of that prescription. The patient still has his Butrans patches at the pharmacy from his last visit to [facility]. 2. The patient has had his COVID vaccine. He is grateful for especially since he has been in the hospital for several procedures recently. Time spent with the patient in consultation, reviewing recent clinical notes and physician reports, physical exam and correlation of findings of medical documentation to determine possible treatment is 17 minutes. Time spent in preparation for appointment reviewing prescription monitoring system review of previous records and proposed treatment options and reviewing current medications is 5 minutes. Time spent in preparation and sending electronic prescriptions with collaborating physician, Dr. Eliel Browne, documentation of visit and plan of treatment and discussion with is 5 minutes. Total time spent 27 minutes. <ELECTRONICALLY SIGNED> By: Roz Barakat 11/26/20 1446 1154 1303 Roz Barakat /nt
== END ==
LOC: PAIN 06:51
PROVIDERS: ATTEND Clinical Nurse Specialist Adult Health
DX: M54.5 Low back pain (principal); M79.605 Pain in left leg; G89.4 Chronic pain syndrome; M19.90 Unspecified osteoarthritis, unspecified site; G62.9 Polyneuropathy, unspecified; F11.20 Opioid dependence, uncomplicated; D46.9 Myelodysplastic syndrome, unspecified; Z88.8 Allergy status to other drugs, medicaments and biological substances; Z79.899 Other long term (current) drug therapy